=== PATIENT | male | born 1990 | race Two or more races ===

== ENCOUNTER 2021-08-12 00:27 | Emergency (ER) | payer OTHER ==
[~2021-08-12] VITALS: Ht 182.9 cm; Wt 68.2 kg
[2021-08-12] MEDS ORDERED: PHENAZOPYRIDINE HCL 100 MG TABLET PO ONE (01:30)
[2021-08-12] MEDS ORDERED: AZITHROMYCIN 500 MG TABLET PO ONE (01:30)
[2021-08-12] MEDS ORDERED: CefTRIAXone 1 GM/DEXTROSE 50 ML IV ONE (01:30)
[2021-08-12 01:35] LABS: APPEARANCE,URINE CLOUDY (CLEAR); BILIRUBIN,URINE NEGATIVE (NEGATIVE); GLUCOSE, URINE (UA) NEGATIVE (NEGATIVE); KETONES,URINE TRACE mg/dL (NEGATIVE); LEUKOCYTE ESTERASE ,URINE LARGE (NEGATIVE); NITRATE,URINE NEGATIVE (NEGATIVE); OCCULT BLOOD,URINE TRACE (NEGATIVE); PROTEIN,URINE NEGATIVE (NEGATIVE)
[2021-08-12 01:46] LABS: RBC,URINE None Seen /HPF (0-2); WBC,URINE >100 /HPF (0-5)
[2021-08-12 01:47] LABS: BACTERIA,URINE Rare /HPF (None Seen)
[2021-08-12 02:30] VITALS: BP 114/74
== END 2021-08-12 02:32 | disposition home or self-care (01) ==
LOC: EMS 00:31
DX: N34.2 Other urethritis (principal); F12.90 Cannabis use, unspecified, uncomplicated; F17.210 Nicotine dependence, cigarettes, uncomplicated
CPT/HCPCS: 81001; 87086; 87491; 87591; 96365; 99284; J0696; Q9967